=== PATIENT | female | born 1995 | race Caucasian/White ===

== ENCOUNTER 2019-06-19 14:13 | Emergency (ER) | payer SELFPAY ==
[2019-06-19 15:51] LABS: APPEARANCE,URINE SLIGHTLY-CLOUDY; BILIRUBIN,URINE NEGATIVE (NEGATIVE); COLOR,URINE YELLOW; GLUCOSE, URINE NEGATIVE (NEGATIVE); KETONES,URINE TRACE mg/dL (NEGATIVE); LEUKOCYTE ESTERASE,URINE NEGATIVE (NEGATIVE); NITRITE,URINE NEGATIVE (NEGATIVE); PROTEIN,URINE NEGATIVE (NEGATIVE); URINE SPECIFIC GRAVITY 1.013; UROBILINOGEN,URINE NEGATIVE mg/dL (<2.0)
--- NOTE | 2019-06-19 15:59 | ER Document Report ---
ED Medical Screen (RME) - General Chief Complaint: OB Problem (<20wks) Stated Complaint: VAGINAL BLEEDING WITH PRGNANCY Time Seen by Provider: 06/19/19 15:52 Notes: Health the 23-year-old G1, P0 9-week female presents to the emergency department for vaginal bleeding. Started yesterday as light spotting but has slightly increased and she noticed that the color became brighter. States she is having usual lower abdominal cramping that is not severe, denies any abnormal vaginal discharge, denies any urinary frequency/dysuria/urgency, denies lightheadedness, chest pain, shortness of breath. Denies nausea or vomiting. Exam: Well-appearing in no acute distress, nontoxic, lungs clear to auscultation in all banegas, regular cardiac rate and rhythm I have greeted and performed a rapid initial assessment of this patient. A comprehensive ED assessment and evaluation of the patient, analysis of test results and completion of medical decision making process will be conducted by an additional ED providers. TRAVEL OUTSIDE OF THE [place] IN LAST 30 DAYS: No - Related Data Allergies/Adverse Reactions: No Known Allergies Allergy (Verified 06/19/19 15:51) Home Medications: Past Medical History - Social History Chew tobacco use (# tins/day): No Frequency of alcohol use: None Drug Abuse: None Physical Exam - Vital signs Vitals: Temp Pulse Resp BP Pulse Ox 98.8 F 77 18 151/84 H 100 06/19/19 14:24 06/19/19 14:24 06/19/19 14:24 06/19/19 14:24 06/19/19 14:24 Course - Vital Signs Vital signs: Temp Pulse Resp BP Pulse Ox 98.8 F 77 18 151/84 H 100 06/19/19 14:24 06/19/19 14:24 06/19/19 14:24 06/19/19 14:24 06/19/19 14:24 - Laboratory Laboratory results interpreted by me: 06/19/19 15:33 Urine Ketones TRACE H Urine Blood LARGE H
--- NOTE | 2019-06-19 17:30 | RADIOLOGY REPORT (SQ) ---
EXAM DESCRIPTION: U/S OB TRANSVAG W/DOPPLER COMPLETED DATE/TIME: 06/19/2019 5:11 pm REASON FOR STUDY: + preg vag bleeding COMPARISON: None. TECHNIQUE: Endovaginal static and realtime grayscale images acquired of the pelvis. Additional selec latoya spectral and color Doppler images recorded. All images stored on PACs. bHCG: Not available CLINICAL DATES: Last menses 04/20/2019 (estimated gestational age by last menstrual period 8 weeks 4 days). LIMITATIONS: None. FINDINGS: UTERUS: No masses. No anomalies. Uterus is 8 x 4 x 5 cm in size GESTATIONAL SAC: Normal shape. Estimated gestational age by mean sac diameter is 6 weeks 0 days YOLK SAC: Yes POLE: Difficult to visualize There is a moderate size subchorionic hemorrhage. It cine loop imaging, active bleeding is present a long the periphery of the gestational sac. Subchorionic hemorrhage measures about 17 mm by 9 mm in s ize. RIGHT ADNEXA: Normal ovary with normal vascular flow. Right ovary 2.9 x 1.9 x 1.8 cm in size. No ad nexal free fluid.No adnexal masses. LEFT ADNEXA: Normal ovary with normal vascular flow. Left ovary 3.7 x 2.7 x 2.6 cm in size. No adne xal free fluid.No adnexal masses. 2 cm corpus luteum cyst left ovary FREE FLUID: None. OTHER: No other significant finding. IMPRESSION: Intrauterine gestational sac with yolk sac measuring about 6 weeks 0 days. No charley e is identified. Moderate subchorionic hemorrhage with active bleeding. Findings are worrisome for spontaneous . No free pelvic fluid or adnexal blood clot/mass is identified worrisome for ectopic . Close clinical follow-up with repeat ultrasound and serial HCG recommended Trimester of : First trimester - 0 to 13 weeks. TECHNICAL DOCUMENTATION: JOB ID: [id number] [employer]- All Rights Reserved Reading location - IP/workstation name: [email or web address]
[2019-06-19 18:08] LABS: ABSOLUTE LYMPHOCYTES (AUTO) 3.9 10^3/uL (0.5-4.7); ABSOLUTE MONOCYTES (AUTO) 0.9 10^3/uL (0.1-1.4); ABSOLUTE NEUT (AUTO) 7.4 10^3/uL (1.7-8.2); BASOPHILS % (AUTO) 0.2 % (0-2); EOSINOPHILS % (AUTO) 0.1 % (0-6); HEMATOCRIT 44.6 % (36.0-47.0); HEMOGLOBIN 15.2 g/dL (12.0-15.5); LYMPHOCYTES % (AUTO) 31.6 % (13-45); MEAN CORPUSCULAR HEMOGLOBIN 30.6 pg (27.0-33.4); MEAN CORPUSCULAR VOLUME 90 fl (80-97); MONOCYTES % (AUTO) 7.6 % (3-13); PLATELET COUNT 312 10^3/uL (150-450); RED BLOOD COUNT 4.97 10^6/uL (3.72-5.28); SEGMENTED NEUTROPHILS % (AUTO) 60.5 % (42-78); TOTAL CELLS COUNTED % (AUTO) 100 %; WHITE BLOOD COUNT 12.2 10^3/uL (4.0-10.5)
[2019-06-19 18:27] LABS: ALKALINE PHOSPHATASE 55 U/L (38-126); ANION GAP 15 (5-19); ASPARTATE AMINO TRANSFERASE 19 U/L (14-36); BILIRUBIN,DIRECT 0.1 mg/dL (0.0-0.4); BILIRUBIN,TOTAL 0.4 mg/dL (0.2-1.3); BLOOD UREA NITROGEN 10 mg/dL (7-20); CALCIUM 9.8 mg/dL (8.4-10.2); CARBON DIOXIDE 21 mmol/L (22-30); CHLORIDE 105 mmol/L (98-107); GLUCOSE 81 mg/dL (75-110); POTASSIUM 3.8 mmol/L (3.6-5.0); TOTAL PROTEIN 7.9 g/dL (6.3-8.2)
--- NOTE | 2019-06-19 18:35 | ER Document Report ---
ED General - General Chief Complaint: OB Problem (<20wks) Stated Complaint: VAGINAL BLEEDING WITH PRGNANCY Time Seen by Provider: 06/19/19 15:52 Primary Care Provider: [facility] [Provider Group] - Follow up as needed TRAVEL OUTSIDE OF THE [place] IN LAST 30 DAYS: No - HPI Notes: Patient is a 23-year-old female approximately 9 weeks with one previous miscarriage who presents complaining of vaginal spotting/bleeding x1 day. Patient states that she is able to eat and drink without difficulty. She is urinating normally and having normal bowel movements. She has no other concerns or complaints. Denies drug allergies. Denies any headache, fever, neck pain, URI, sore throat, chest pain, palpitations, syncope, cough, shortness of breath, wheeze, dyspnea, nausea/vomiting/diarrhea, urinary retention, dysuria, hematuria, back pain, or rash. - Related Data Allergies/Adverse Reactions: No Known Allergies Allergy (Verified 06/19/19 15:51) Home Medications: Past Medical History - Social History Smoking Status: Never Smoker Chew tobacco use (# tins/day): No Frequency of alcohol use: None Drug Abuse: None Family History: Reviewed & Not Pertinent Patient has suicidal ideation: No Patient has homicidal ideation: No Review of Systems - Review of Systems -: Yes All other systems reviewed and negative Physical Exam - Vital signs Vitals: Temp Pulse Resp BP Pulse Ox 98.8 F 77 18 151/84 H 100 06/19/19 14:24 06/19/19 14:24 06/19/19 14:24 06/19/19 14:24 06/19/19 14:24 - Notes Notes: PHYSICAL EXAMINATION: GENERAL: Well-appearing, well-nourished and in no acute distress. HEAD: Atraumatic, normocephalic. EYES: Pupils equal round and reactive to light, extraocular movements intact, sclera anicteric, conjunctiva are normal. ENT: Nares patent and without discharge. oropharynx clear without exudates. No tonsilar hypertrophy or erythema. Moist mucous membranes. NECK: Normal range of motion, supple without lymphadenopathy LUNGS: Breath sounds clear to auscultation bilaterally and equal. No wheezes rales or rhonchi. HEART: Regular rate and rhythm without murmurs, rubs, gallops. ABDOMEN: Soft, nontender, nondistended abdomen. No guarding, no rebound. Normal bowel sounds present. No CVA tenderness bilaterally. Musculoskeletal: FROM to passive/active. Strength 5+/5. Extremities: No cyanosis, clubbing, or edema b/l. Peripheral pulses 2+. Capillary refill less than 3 seconds. NEUROLOGICAL: Normal speech, normal gait. PSYCH: Normal mood, normal affect. SKIN: Warm, Dry, normal turgor, no rashes or lesions noted. Course - Re-evaluation Re-evalutation: 06/19/19 Patient is an afebrile, well-hydrated, 23-year-old female who presents to the ED with bleeding in early and probable spontaneous on US. Vitals are acceptable without any significant tachycardia, tachypnea, or hypoxia. PE is otherwise unremarkable. CBC, CMP unremarkable for acute pathology. [place] [address]. TVUS shows gest/yok sac measuring 6wks with no pole. + 'moderate' subchorionic hemorrhage noted. UA unremarkable. Patient is nontoxic-appearing is tolerating p.o. without any difficulties. No other labs or imaging warranted at this time based on H&P. Low suspicion/risk for acute appendicitis, bowel obstruction, acute cholecystiti s, acute cholangitis, perforated diverticulitis, incarcerated hernia, pancreatitis, perforated ulcer, peritonitis, sepsis, pelvic inflammatory disease, ectopic , tubo-ovarian abscess, ovarian torsion, or other systemic emergent condition at this time. Patient is aware that her condition can change from initial presentation and she needs to monitor symptoms closely and seek medical attention if any acute changes. Recheck HCG in 2-3 days, may need repeat US next week as well. Conservative measures otherwise for symptoms. Recheck with your PCM/OBGYN in 3-5 days. Return to the ED with any worsening/concerning symptoms otherwise as reviewed in discharge. Patient is in agreement. - Vital Signs Vital signs: Temp Pulse Resp BP Pulse Ox 98.8 F 77 18 151/84 H 100 06/19/19 14:24 06/19/19 14:24 06/19/19 14:24 06/19/19 14:24 06/19/19 14:24 - Laboratory Result Diagrams: 06/19/19 17:51 06/19/19 17:51 Laboratory results interpreted by me: 06/19/19 06/19/19 06/19/19 15:33 17:51 17:51 WBC 12.2 H Carbon Dioxide 21 L Beta HCG, Quant 72147.00 H Urine Ketones TRACE H Urine Blood LARGE H Discharge - Discharge Clinical Impression: Bleeding in early Condition: Stable Disposition: HOME, SELF-CARE Additional Instructions: As reviewed, the ultrasound findings are very concerning for possible spontaneous . You are currently only measuring at 6 weeks 0 days and there is a moderate subchorionic hemorrhage with active bleeding ongoing without pole identified. You should have your hormones rechecked in 2 to 3 days and another ultrasound next week by [facility]/health department. Maintain fluid intake Proper hygienic technique Keep the skin clean Tylenol as needed F/u with your PCM/OBGYN in 3-5 days for a recheck Return to the ED with any development of TODD/fever, trouble with vision, eye redness, worsening pain, urethral discharge, urinary retention, blood in the urine, flank pain, abdominal pain, n/v, Chest Pain, shortness of breath, joint pains, trouble breathing, or any other worsening/concerning symptoms as needed otherwise. Forms: Elevated Blood Pressure, Follow-Up Laboratory Testing Referrals: [facility] [Provider Group] - Follow up as needed
[2019-06-19 19:52] VITALS: BP 126/86
== END 2019-06-19 19:52 | disposition home or self-care (01) ==
LOC: ER 14:13
DX: O20.8 Other hemorrhage in early pregnancy (principal); Z3A.01 Less than 8 weeks gestation of pregnancy
CPT/HCPCS: 36415; 76817; 80053; 81001; 84702; 85025; 86900; 86901; 93976; 99284

== ENCOUNTER → 2019-07-09 | Outpatient (CLI) | payer SELFPAY ==
--- NOTE | 2019-07-09 16:56 | RADIOLOGY REPORT (SQ) ---
EXAM DESCRIPTION: U/S [id number] TRNABD 1GES W/ODOP COMPLETED DATE/TIME: 07/09/2019 1:43 pm REASON FOR STUDY: (Z34.81)ENCOUNTER FOR SUPRVSN OF NORMAL , FIRST TRIMESTER Z34.81 ENCOUNT ER FOR SUPRVSN OF NORMAL , FIRST TRIM COMPARISON: None. TECHNIQUE: Transabdominal static and realtime grayscale images acquired of the pelvis. Additional se lected spectral and color Doppler images recorded. All images stored on PACs. bHCG: Not applicable. CLINICAL DATES: LMP 05/08/2019. 8 weeks 6 days LIMITATIONS: None. FINDINGS: FETUS: Single Living intrauterine . ULTRASOUND EGA: 8 weeks 6 days ULTRASOUND BERNABE: 02/12/2020 EFW: Not applicable less than 20 weeks. CRL: 2.2 cm FHR: 173 beats per minute. SURVEY: Too early to assess. AMNIOTIC FLUID: Adequate amount. PLACENTA: Not yet developed due to early gestation. SUBCHORIONIC BLEED: No SIZE OF BLEED: Not applicable. UTERUS: No masses. No anomalies. CERVICAL LENGTH: 2.4 cm. Closed. RIGHT ADNEXA: Normal ovary with normal vascular flow. 3.5 x 2.5 x 1.7 cm. No adnexal free fluid. No adnexal masses. LEFT ADNEXA: Normal ovary with normal vascular flow. 4.5 x 3.5 x 2 cm. There is a 2.4 x 2.3 x 1.7 c m corpus luteum. No adnexal free fluid. No adnexal masses. FREE FLUID: None. OTHER: No other significant finding. IMPRESSION: LIVING INTRAUTERINE . EGA 8 weeks 6 days. Trimester of : First trimester - 0 to 13 weeks. TECHNICAL DOCUMENTATION: JOB ID: [id number] [employer]- All Rights Reserved rev-12/20 Reading location - IP/workstation name: [email or web address]
== END ==
LOC: RAD 13:13
PROVIDERS: ATTEND Midwife
DX: Z34.81 Encounter for supervision of other normal pregnancy, first trimester (principal)
CPT/HCPCS: 76801

== ENCOUNTER 2019-12-29 10:15 | Outpatient (CLI) | payer BC ==
--- NOTE | 2019-12-29 11:05 | Non Stress Test Report ---
Non Stress Test Datetime Report Generated by CPN: 12/29/2019 11:05 DEMOGRAPHIC EGA NST: 33.4 INDICATION Indication for Study (NST) Other: IUP at 33.4; Labile BPs VITAL SIGNS Temperature - NST: 98.5 Pulse - NST: 105 RESP - NST: 15 NBPSYS NST: 111 NBPDIA NST: 64 MONITORING Monitor Explained: Monitor Explained; Test Explained; Patient Verbalized Understanding Monitor Explained: Monitor Explained; Test Explained; Patient Verbalized Understanding Time on Monitor: 12/29/2019 10:35 Time on Monitor: 12/29/2019 10:27 NST INTERVENTIONS NST Interventions: PO Hydration NST Interventions: PO Hydration Physician Notified NST: Iliana Burns, CNM BABY A: [id number] BABY A Movement : Present Contraction Frequency : None FHR Baseline : 145 Accelerations : 15X15 Decelerations : None Variability : Moderate 6-25bpm NST Review: Meets Criteria for Reactive NST NST Review and Verified By : AFeuston, RN NST Results: Reactive NST REPORT Report Trigger: Send Report
== END 2019-12-29 11:05 | disposition home or self-care (01) ==
LOC: LC 10:15
PROVIDERS: ATTEND Obstetrics & Gynecology
DX: Z34.93 Encounter for supervision of normal pregnancy, unspecified, third trimester (principal); Z3A.33 33 weeks gestation of pregnancy
CPT/HCPCS: 59025

== ENCOUNTER 2020-01-12 10:27 | Outpatient (CLI) | payer BC ==
--- NOTE | 2020-01-12 11:06 | Non Stress Test Report ---
Non Stress Test Datetime Report Generated by CPN: 01/12/2020 11:06 DEMOGRAPHIC EGA NST: 35.4 INDICATION Indication for Study (NST) Other: proteinuria VITAL SIGNS Temperature - NST: 98.4 Pulse - NST: 105 RESP - NST: 15 NBPSYS NST: 131 NBPDIA NST: 62 MONITORING Monitor Explained: Monitor Explained; Test Explained; Patient Verbalized Understanding Time on Monitor: 01/12/2020 10:39 Time off Monitor: 01/12/2020 11:03 NST Duration: 24 NST INTERVENTIONS NST Interventions: PO Hydration; Reposition Patient Physician Notified NST: NYancy Luqueon, CNM BABY A: [id number] BABY A Movement : Present Contraction Frequency : 0 FHR Baseline : 145 Accelerations : 15X15 Decelerations : None Variability : Moderate 6-25bpm NST Review: Meets Criteria for Reactive NST NST Review and Verified By : SAutry NST Results: Reactive NST REPORT Report Trigger: Send Report
== END 2020-01-12 11:06 | disposition home or self-care (01) ==
LOC: LC 10:27
PROVIDERS: ATTEND Obstetrics & Gynecology
DX: O12.13 Gestational proteinuria, third trimester (principal); Z3A.35 35 weeks gestation of pregnancy
CPT/HCPCS: 59025

== ENCOUNTER 2020-01-19 10:23 | Outpatient (CLI) | payer BC ==
[2020-01-19 11:02] LABS: ABSOLUTE LYMPHOCYTES (AUTO) 2.4 10^3/uL (0.5-4.7); ABSOLUTE MONOCYTES (AUTO) 0.8 10^3/uL (0.1-1.4); ABSOLUTE NEUT (AUTO) 7.7 10^3/uL (1.7-8.2); BASOPHILS % (AUTO) 0.2 % (0-2); EOSINOPHILS % (AUTO) 0.4 % (0-6); HEMATOCRIT 36.5 % (36.0-47.0); HEMOGLOBIN 12.7 g/dL (12.0-15.5); LYMPHOCYTES % (AUTO) 21.8 % (13-45); MEAN CORPUSCULAR HEMOGLOBIN 31.4 pg (27.0-33.4); MEAN CORPUSCULAR VOLUME 90 fl (80-97); MONOCYTES % (AUTO) 6.9 % (3-13); PLATELET COUNT 284 10^3/uL (150-450); RED BLOOD COUNT 4.06 10^6/uL (3.72-5.28); RED CELL DISTRIBUTION WIDTH 13.6 % (11.5-14.0); SEGMENTED NEUTROPHILS % (AUTO) 70.7 % (42-78); TOTAL CELLS COUNTED % (AUTO) 100 %; WHITE BLOOD COUNT 10.9 10^3/uL (4.0-10.5)
[2020-01-19 11:11] LABS: AMORPHOUS SEDIMENT,URINE TRACE /HPF; APPEARANCE,URINE TURBID; BILIRUBIN,URINE NEGATIVE (NEGATIVE); COLOR,URINE YELLOW; GLUCOSE, URINE NEGATIVE (NEGATIVE); KETONES,URINE NEGATIVE (NEGATIVE); LEUKOCYTE ESTERASE,URINE NEGATIVE (NEGATIVE); NITRITE,URINE NEGATIVE (NEGATIVE); PROTEIN,URINE NEGATIVE (NEGATIVE); UROBILINOGEN,URINE NEGATIVE mg/dL (<2.0)
[2020-01-19 11:20] LABS: ALBUMIN 3.3 g/dL (3.5-5.0); ALKALINE PHOSPHATASE 115 U/L (38-126); ANION GAP 8 (5-19); ASPARTATE AMINO TRANSFERASE 18 U/L (14-36); BILIRUBIN,TOTAL 0.2 mg/dL (0.2-1.3); BLOOD UREA NITROGEN 4 mg/dL (7-20); CALCIUM 9.4 mg/dL (8.4-10.2); CARBON DIOXIDE 20 mmol/L (22-30); CHLORIDE 108 mmol/L (98-107); GLUCOSE 111 mg/dL (75-110); POTASSIUM 3.6 mmol/L (3.6-5.0); TOTAL PROTEIN 6.1 g/dL (6.3-8.2); URIC ACID 4.5 mg/dL (2.5-6.2)
[2020-01-19 11:25] LABS: URINE AMPHETAMINES SCREEN NEGATIVE; URINE BARBITURATES SCREEN NEGATIVE; URINE BENZODIAZEPINES SCREEN NEGATIVE; URINE COCAINE SCREEN NEGATIVE; URINE METHADONE SCREEN NEGATIVE; URINE PHENCYCLIDINE SCREEN NEGATIVE
[2020-01-19 11:28] LABS: URINE MARIJUANA (THC) SCREEN UNCONFIRMED POSITIVE
[2020-01-19 11:29] LABS: UR PRO/CREAT RATIO RESULT 0.2 mg/mg (0.0-0.2); URINE CREATININE 68.5 mg/dL (16-327); URINE PROTEIN 16.3 mg/dL (<12)
--- NOTE | 2020-01-19 12:57 | Non Stress Test Report ---
Non Stress Test Datetime Report Generated by CPN: 01/19/2020 12:56 DEMOGRAPHIC EGA NST: 36.4 INDICATION Indication for Study (NST) Other: GHTN at 36.4 (Annotations: Data stored by CPN on behalf of user) MONITORING Monitor Explained: Monitor Explained; Test Explained; Patient Verbalized Understanding Time on Monitor: 01/19/2020 10:36 Time off Monitor: 01/19/2020 11:17 NST Duration: 41 NST INTERVENTIONS NST Interventions: PO Hydration Physician Notified NST: Akers BABY A: [id number] BABY A Movement : Present Contraction Frequency : o FHR Baseline : 140 Accelerations : 15X15 Decelerations : None Variability : Moderate 6-25bpm NST Review: Meets Criteria for Reactive NST NST Review and Verified By : Lyla, RN NST Results: Reactive NST REPORT Report Trigger: Send Report
== END 2020-01-19 11:44 | disposition home or self-care (01) ==
LOC: LC 10:23
PROVIDERS: ATTEND Student in an Organized Health Care Education/Training Program
DX: O13.3 Gestational [pregnancy-induced] hypertension without significant proteinuria, third trimester (principal); Z3A.36 36 weeks gestation of pregnancy
CPT/HCPCS: 59025; 36415; 83615; 84156; 84550; 82570; 85025; 80053; 81001; 80307; G0480 ×2; 80349

== ENCOUNTER 2020-01-29 02:59 | Inpatient (IN) | payer BC ==
[2020-01-29] MEDS ORDERED: RINGERS SOLUTION,LACTATED 1,000 ML IV PRN ×2 (03:09→12:41)
[2020-01-29] MEDS ORDERED: RINGERS SOLUTION,LACTATED 1,000 ML IV ONE (03:09)
[2020-01-29] MEDS ORDERED: DINOPROSTONE 10 MG VAGINAL INSERT.SR PV ONE (03:19)
[2020-01-29] MEDS ORDERED: OXYTOCIN/0.9 % SODIUM CHLORIDE 30 UNIT/500 ML RTUINJ IV PRN ×2 (03:19→12:41)
[2020-01-29] MEDS ORDERED: MAG HYDROX/AL HYDROX/SIMETH SUSP 30 ML UDCUP PO PRN (03:19)
[2020-01-29] MEDS ORDERED: ZOLPIDEM TARTRATE 5 MG TABLET PO PRN (03:19)
[2020-01-29] MEDS ORDERED: ACETAMINOPHEN 325 MG TABLET PO PRN ×3 (03:19→18:22)
[2020-01-29 03:35] LABS: ABSOLUTE LYMPHOCYTES (AUTO) 3.1 10^3/uL (0.5-4.7); ABSOLUTE MONOCYTES (AUTO) 0.7 10^3/uL (0.1-1.4); ABSOLUTE NEUT (AUTO) 5.9 10^3/uL (1.7-8.2); BASOPHILS % (AUTO) 0.3 % (0-2); EOSINOPHILS % (AUTO) 0.4 % (0-6); HEMATOCRIT 37.9 % (36.0-47.0); HEMOGLOBIN 13.1 g/dL (12.0-15.5); LYMPHOCYTES % (AUTO) 31.7 % (13-45); MEAN CORPUSCULAR HEMOGLOBIN 31.1 pg (27.0-33.4); MEAN CORPUSCULAR HGB CONC 34.6 g/dL (32.0-36.0); MEAN CORPUSCULAR VOLUME 90 fl (80-97); MONOCYTES % (AUTO) 6.9 % (3-13); PLATELET COUNT 282 10^3/uL (150-450); RED BLOOD COUNT 4.22 10^6/uL (3.72-5.28); RED CELL DISTRIBUTION WIDTH 13.6 % (11.5-14.0); SEGMENTED NEUTROPHILS % (AUTO) 60.7 % (42-78); TOTAL CELLS COUNTED % (AUTO) 100 %; WHITE BLOOD COUNT 9.8 10^3/uL (4.0-10.5)
[2020-01-29 03:35] LABS: APPEARANCE,URINE CLEAR; BILIRUBIN,URINE NEGATIVE (NEGATIVE); COLOR,URINE STRAW; GLUCOSE, URINE NEGATIVE (NEGATIVE); KETONES,URINE NEGATIVE (NEGATIVE); LEUKOCYTE ESTERASE,URINE NEGATIVE (NEGATIVE); NITRITE,URINE NEGATIVE (NEGATIVE); PROTEIN,URINE NEGATIVE (NEGATIVE); URINE SPECIFIC GRAVITY 1.005; UROBILINOGEN,URINE NEGATIVE mg/dL (<2.0)
[2020-01-29 03:54] LABS: URINE AMPHETAMINES SCREEN NEGATIVE; URINE BARBITURATES SCREEN NEGATIVE; URINE BENZODIAZEPINES SCREEN NEGATIVE; URINE COCAINE SCREEN NEGATIVE; URINE MARIJUANA (THC) SCREEN NEGATIVE; URINE METHADONE SCREEN NEGATIVE; URINE PHENCYCLIDINE SCREEN NEGATIVE
[2020-01-29] MEDS ORDERED: DINOPROSTONE 10 MG VAGINAL INSERT.SR ONE (04:08)
--- NOTE | 2020-01-29 06:02 | Admission Physical ---
Datetime Report Generated by CPN: 01/29/2020 06:02 CURRENT ADMISSION Chief Complaint: Scheduled Induction of Labor Indication for Induction: PreEclampsia Admit Impression : Term, Intrauterine Admit Plan: Admit to Unit; Initiate Labor Induction Protocol ALLERGIES Medication Allergies: No Medication Allergies: No Known Allergies (01/29/2020) Latex: No Latex Allergies OBSTETRICAL HISTORY EDC: 02/12/2020 00:00 : 2 Para: 0 Term: 0 : 0 SAB: 1 IAB: 0 Ectopic: 0 Livin Cesareans: 0 VBACs: 0 Multiple Births: 0 Gestational Diabetes: No Rh Sensitization: No Incompetent Cervix: No LUIS: No Infertility: No ART Treatment: No Uterine Anomaly: No IUGR: No Hx Previous C/S: No Macrosomia: No Hx Loss/Stillborn: No PIH: No Hx : No Placenta Previa/Abruption: No Depression/PP Depression: No PTL/PROM: No Post Hemorrhage: No Current Procedures: Ultrasound; NST Obstetrical History Comments: 2014, SAB G2 - Current SEE RECORDS Alcohol: No Marijuana : No Cocaine: No Other Illicit Drugs: No Cigarettes: Current Everyday Smoker. 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 Surgery: No Heart Disease: No Hosp/Surgery: Yes Autoimmune Disorder: No Anesthetic Complications: No Kidney Disease: No Abnormal Pap Smear: Yes Neuro/Epilepsy: No Psychiatric Disorders: No Other Medical Diseases: No Hepatitis/Liver Disease: No Significant Family History: No Varicosities/Phlebitis: No Trauma/Violence : No Thyroid Dysfunction: No Medical History Comments: HTN several years ago stopped meds and lost weight; ASCUS pap; subchorionic bleed 1st trimester; widsom teeth removed; tonsillectomy INFECTIOUS HISTORY Gonorrhea: No Genital Herpes: No Chlamydia: No Tuberculosis: No Syphilis: No Hepatitis: No HIV/AIDS Exposure: No Rash or Viral Illness: No HPV: No PHYSICAL EXAM General: Normal HEENT: Normal Neurologic: Normal Thyroid: Normal Heart: Normal Lungs: Normal Breast: Normal Back: Normal Abdomen: Normal Genitourinary Exam: Normal Extremities: Normal DTRs: Normal Pelvic Type: Adequate Vital Signs: Reviewed; Within Normal Limits VAGINAL EXAM Dilatation: 1 Effacement: 75 Station: -1 Contraction Comments: no regular MEMBRANES Membranes: Intact FETUS A EGA: 38.0 Monitoring: External US FHR- Baseline: 135 Variability: Moderate 6-25bpm Accelerations: 15X15 Decelerations: None FHR Category: Category I Presentation: Vertex Admit Comment: at 38.0 wks EGA for IOL d/t preeclampsia, mild diagnosed by elevated b/p's and 24 hour urine of 618 -Admit to LDR -NPO and IVFs: LR bolus 1 liter, then 125 cc/hr -CEFM and toco -Activitiy as tolerated -VS Q 1 hr , call provider with elevated b/p >160 systolic or >110 diastolic. PIH labs ordered -GBS negative -Cervidil at 0400 -anticipate . -Rumney Mag sulfate for severe b/p or features PLANS FOR LABOR AND DELIVERY Benefit of Breast Feed Discussed: Yes Circumcision: N/A INFORMED CONSENT Informed Consent Obtained: Vaginal Delivery; Risks, Benefits and Alternatives Discussed Signature: with User ID: Marija : with User ID: [email or web address]
[2020-01-29 06:49] LABS: ALBUMIN 3.2 g/dL (3.5-5.0); ALKALINE PHOSPHATASE 123 U/L (38-126); ANION GAP 5 (5-19); ASPARTATE AMINO TRANSFERASE 17 U/L (14-36); BILIRUBIN,TOTAL 0.2 mg/dL (0.2-1.3); BLOOD UREA NITROGEN 6 mg/dL (7-20); CALCIUM 9.2 mg/dL (8.4-10.2); CARBON DIOXIDE 23 mmol/L (22-30); CHLORIDE 109 mmol/L (98-107); GLUCOSE 87 mg/dL (75-110); POTASSIUM 3.9 mmol/L (3.6-5.0); TOTAL PROTEIN 5.8 g/dL (6.3-8.2); URIC ACID 4.8 mg/dL (2.5-6.2)
[2020-01-29] MEDS ORDERED: LIDOCAINE 1% INJ-PF (10 MG/ML) 30 ML SDV ONE (08:17)
[2020-01-29] MEDS ORDERED: OXYTOCIN/0.9 % SODIUM CHLORIDE 0 UNIT/0 ML RTUINJ ONE (08:17)
[2020-01-29] MEDS ORDERED: MISOPROSTOL 0.2 MG TABLET ONE ×2 (08:17→17:53)
[2020-01-29] MEDS ORDERED: OXYTOCIN 10 UNIT/ML VIAL ONE ×2 (08:17→12:48)
[2020-01-29] MEDS ORDERED: NALBUPHINE HCL INJ 10 MG/1 ML AMPULE ONE (08:53)
[2020-01-29] MEDS ORDERED: NALBUPHINE HCL INJ 10 MG/1 ML AMPULE INJ ONE (08:53)
--- NOTE | 2020-01-29 08:58 | L&D Progress Notes ---
PROGRESS NOTES Datetime Report Generated by CPN: 01/29/2020 08:58 PROGRESS NOTE Impression: Reassuring Heart Rate Plan: Continue Present Management; Induction Plan Other: IV Pain medication Informed Consent Obtained: Vaginal Delivery; Risks, Benefits and Alternatives Discussed Vital Signs : Reviewed; Within Normal Limits Comment: IOL continues, Cervidil replaced. Pt standing at the bedside rocking her hips. Denies headache. Becoming uncomfortable w/ stronger contractions now. States she does plan an epidural once in active labor. Attending MD today is Dr Pastrana, agrees with plan of care. VAGINAL EXAM Dilatation: 1 Effacement: 75 Station: -1 Contractions: no regular LAST VAGINAL EXAM-NURSING Nursing Exam Dilitation: 1.0 Nursing Exam Effacement: 75 Nursing Exam Station: -1 MEMBRANES Membranes: Intact FETUS A FHR - Baseline: 140 Monitoring: External US Variability: Moderate 6-25bpm Accelerations: 15X15 Decelerations: None FHR Category: Category I : 38.0 Presentation: Vertex SIGNATURE SIGNATURE: [id number];[id number];[id number] Assignment: Oumou Pastrana MD Signature: with User ID: Mario : with User ID: Mario
[2020-01-29] MEDS ORDERED: EPHEDRINE SULFATE INJ 50 MG/1 ML AMPULE ONE ×2 (10:34→12:49)
[2020-01-29] MEDS ORDERED: FENTANYL/BUPIVACAINE/NS/PF 300 MCG/150 ML RTUINJ EPI ONE (10:34)
[2020-01-29] MEDS ORDERED: BUPIVACAINE HCL 0.25 % INJ/PF (2.5 MG/1 ML) 30 ML VIAL ONE (10:35)
[2020-01-29] MEDS ORDERED: ONDANSETRON HCL INJ/PF 4 MG/2 ML SDV IV ONE (11:12)
[2020-01-29] MEDS ORDERED: ONDANSETRON HCL INJ/PF 4 MG/2 ML SDV ONE ×2 (11:13→12:49)
--- NOTE | 2020-01-29 12:04 | L&D Progress Notes ---
PROGRESS NOTES Datetime Report Generated by CPN: 01/29/2020 12:04 PROGRESS NOTE Impression: Reassuring Heart Rate Impression Other: variable decels continue, cervidil removed Procedures: Sterile Vag Exam Plan: Continue Present Management; Induction Plan Other: will watch FHR tracing, position changes encouraged. Informed Consent Obtained: Vaginal Delivery; Risks, Benefits and Alternatives Discussed Vital Signs : Reviewed; Within Normal Limits Comment: Variable decels continue, position changes, Cervidil removed. Discussed w/ Dr Pastrana, will allow pt to rest, FHR to recover. Then plan to start Pitocin when appropriate. If Decels continue, my proceed w/ Primary Cesarea for delivery. PLan communicated to pt and her S.O. questions answered. VAGINAL EXAM Dilatation: 1 Effacement: 75 Station: -1 Contractions: no regular LAST VAGINAL EXAM-NURSING Nursing Exam Dilitation: 2.0 Nursing Exam Effacement: 50 Nursing Exam Station: -3 Nursing Exam Contractions: uterine irritability noted MEMBRANES Membranes: Intact FETUS A FHR - Baseline: 160 Monitoring: External US Variability: Moderate 6-25bpm Accelerations: 15X15 Decelerations: Variable FHR Category: Category II : 38.0 Presentation: Vertex SIGNATURE SIGNATURE: [id number];[id number];[id number] Assignment: Oumou Pastrana MD Signature: with User ID: Mario : with User ID: Mario
[2020-01-29] MEDS ORDERED: CEFAZOLIN 1 GM/D5W RTU 2 GM/100 ML RTUPB IV ONE (12:33)
[2020-01-29] MEDS ORDERED: CITRIC ACID/SODIUM CITRATE ORAL SOLN 15 ML UDCUP ONE (12:33)
[2020-01-29] MEDS ORDERED: CEFAZOLIN SODIUM 2 GM in DEXTROSE 5%-WATER 50 ML IV PRN (12:37)
[2020-01-29] MEDS ORDERED: OXYCODONE-ACETAMINOPHEN 5-325 MG TABLET PO PRN (12:41)
[2020-01-29] MEDS ORDERED: PROMETHAZINE HCL INJ 25 MG/1 ML VIAL IV PRN (12:41)
[2020-01-29] MEDS ORDERED: SIMETHICONE 80 MG TAB.CHEW PO PRN (12:41)
[2020-01-29] MEDS ORDERED: MEASLES,MUMPS&RUBELLA VACC/PF 0.5 ML VIAL SUBCUT PRN (12:41)
[2020-01-29] MEDS ORDERED: ACETAMINOPHEN 1,000 MG/100 ML RTUPB IV PRN (12:41)
[2020-01-29] MEDS ORDERED: DIPH/PERTUSS(ACELL)/TETANUS VAC/PF 0.5 ML SYR (>=10YO) IM PRN (12:41)
[2020-01-29] MEDS ORDERED: KETOROLAC TROMETHAMINE INJ/PF 30 MG/1 ML SDV ONE (12:48)
[2020-01-29] MEDS ORDERED: GLYCOPYRROLATE INJ 0.4 MG/2 ML VIAL ONE (12:48)
[2020-01-29] MEDS ORDERED: PHENYLEPHRINE HCL INJ/PF 10 MG/1 ML SDV ONE (12:48)
[2020-01-29] MEDS ORDERED: OXYTOCIN/0.9 % SODIUM CHLORIDE 30 UNIT/500 ML RTUINJ ONE ×2 (12:49→14:35)
[2020-01-29] MEDS ORDERED: ACETAMINOPHEN 1,000 MG/100 ML RTUPB IV ONE (12:49)
[2020-01-29] MEDS ORDERED: LIDOCAINE 2% INJ-PF (20 MG/ML) 10 ML AMPUL ONE ×2 (12:54→13:10)
[2020-01-29] MEDS ORDERED: FENTANYL CITRATE INJ/PF 100 MCG/2 ML AMPUL ONE (13:10)
--- NOTE | 2020-01-29 13:54 | Operative Report ---
Operative Report DATE OF SURGERY: 01/29/20 PREOPERATIVE DIAGNOSIS: IUP at 38 weeks and 0 days, preeclampsia, category 2 st rip persistent, POSTOPERATIVE DIAGNOSIS: Same and possible abruption OPERATION: Primary low transverse hysterotomy section SURGEON: ASHU BURTON ANESTHESIA: Epidural - Events that TISSUE REMOVED OR ALTERED: Placenta COMPLICATIONS: None ESTIMATED BLOOD LOSS: 800 cc INTRAOPERATIVE FINDINGS: Female infant cephalic presentation Apgars of 7 8 and 9. Placenta with evidence of partial abruption due to dark clotted blood behind placenta after it was removed PROCEDURE: PROCEDURE IN DETAIL: The patient was taken to the operating room, prepared and draped in a normal sterile fashion in a supine position with a leftward tilt. A transverse skin incision was made with a scalpel and carried through to the underlying layer of fascia with the same scalpel. The fascia was excised in the midline and extended laterally with Nabor. The fascia was then dissected from the rectus muscle sharply with Nabor and the rectus muscle was divided and the peritoneal cavity was entered sharply with the same Metzenbaum. With good visualization of the bladder and the uterus the bladder blade was inserted. The hysterotomy was nicked with a scalpel and extended laterally with surgeon finger fraction. The infant was then delivered atraumatically with the assistance of a kiwi vaccuum x 1 application with no pop off. The nose and mouth were suctioned with a suction bulb, the cord was clamped and cut and handed off to awaiting pediatricians. Cord blood was collected. The placenta was removed manually. The uterus was exteriorized and cleared of clots and debris. The hysterotomy was closed with 0 Monocryl in a running, locked fashion. A second layer of the same suture was used to imbricate to ensure hemostasis. The uterus was returned to the abdomen and peritoneal cavity was cleared of clots and debris. The rectus muscle and peritoneum were repaired with mattress stitch of 2-0 Chromic. The fascia was closed with 0-Vicryl. The subcutaneous layer was closed with plain catgut and the skin was closed with 4-0 Vicryl. The patient tolerated the procedure well. Sponge, lap, and needle counts correct x2 and the patient was taken to recovery in stable condition.
[2020-01-29] MEDS ORDERED: HYDROMORPHONE HCL INJ/PF 2 MG/ML AMPULE ONE (14:35)
[2020-01-29] MEDS ORDERED: PROMETHAZINE HCL INJ 25 MG/1 ML VIAL ONE (14:35)
--- NOTE | 2020-01-29 15:23 | Delivery Summary ---
Del Sum A-C Datetime Report Generated by CPN: 01/29/2020 15:22 DELIVERY PERSONNEL DELIVERY PERSONNEL: [id number] Delivery Doctor:: Oumou Pastrana MD ASSISTANT ACTIVITIES DIRECTOR:: Ary Parish CRNA Inspector Wire Products:: Charisse Conley RN Neonatal Nurse Practitioner:: FRANDY Pandey Nursery Nurse:: Jami Lemon RN Clinic Charge Nurse/HEALTH DATA ANALYST: Lien Mix CST Clinic Charge Nurse/HEALTH DATA ANALYST: Zack Antoine, BLANKET INSPECTOR MATERNAL INFORMATION Delivery Anesthesia: Epidural Medications After Delivery: Pitocin 30 Units in 500ml NS/D5W Delivery QBL: 430 Maternal Complications: Abruptio Placenta LABOR SUMMARY EDC: 02/12/2020 00:00 No. Babies in Womb: 1 Attempted: No Labor Anesthesia: Epidural LABOR INFORMATION Reason for Induction: Pre-Eclampsia Cervical Ripening Agents: Cervidil Oxytocin: N/A Group B Beta Strep: Negative Steroids Given: None Reason Steroids Not Administered: Not Applicable MEMBRANES Membranes Rupture Method: Artificial Rupture of Membranes: 01/29/2020 13:10 Length of Rupture (hr): 0.03 Amniotic Fluid Color: Clear Amniotic Fluid Amount: Moderate Amniotic Fluid Odor: None STAGES OF LABOR Stage 3 hr: 0 Stage 3 min: 2 VAGINAL DELIVERY Episiotomy: None Laceration #1: None Laceration Extension #1: N/A Laceration Repair: Not Applicable Sponge Count Correct: N/A Sharps Count Correct: N/A CSECTION DELIVERY Primary Indication: Nonreassuring Status Secondary Indication: Abruptio Placenta CSection Urgency: Emergency CSection Incidence: Primary Labor: No Labor Elective: Nonelective CSection Incision: Lower Uterine Transverse BABY A INFORMATION Delivery Date/Time: 01/29/2020 13:12 Method of Delivery: Nurse Controlled Delivery: No Born in Route : No : N/A Forceps: N/A Vacuum Extraction: Successful Shoulder Dystocia : No PRESENTATION/POSITION BABY A Presentation: Cephalic Cephalic Presentation: Vertex Vertex Position: Left Occipital Anterior Breech Presentation: N/A PLACENTA INFORMATION BABY A Placenta Delivery Time : 01/29/2020 13:14 Placenta Method of Delivery: Manual Removal Placenta Status: Delivered SCORES BABY A Heart Rate 1 min: >100 bpm Resp Effort 1 min: Good Cry Reflex Irritability 1 min: Cough or Sneeze or Pulls Away Muscle Tone 1 min: Some Flexion of Extremities Color 1 min: Blue/Pale Resuscitation Effort 1 min: Tactile Stimulation SCORE 1 MIN: 7 Heart Rate 5 min: >100 bpm Resp Effort 5 min: Good Cry Reflex Irritability 5 min: Cough or Sneeze or Pulls Away Muscle Tone 5 min: Active Motion Color 5 min: Body [place], Extremities Blue Resuscitation Effort 5 min: Tactile Stimulation SCORE 5 MIN: 9 INFANT INFORMATION BABY A Gestational Age at Delivery: 38.0 Gestational Status: Early Term- 37- 38.6 Weeks Outcome : Liveborn Condition : Stable Infant Sex: Female WEIGHT/LENGTH BABY A Infant Birthweight (gm): 2575 Infant Weight (lb): 5 Infant Weight (oz): 11 Infant Length (in): 19.25 Infant Length (cm): 48.90 CORD INFORMATION BABY A No. Cord Vessels: 3 Nuchal Cord : N/A Cord Blood Taken: Yes-For Storage (Mom's Blood type +) Infant Suction: None ASSESSMENT BABY A Physical Findings at Delivery: Within Normal Limits Infant Respirations: Appears Normal Streetcar Conductor/ALS Called : No Care By: Duc Lemon RN/B FRANDY Leigh Transferred To: [facility] BABY B INFORMATION : N/A
[2020-01-29] MEDS: KETOROLAC TROMETHAMINE INJ/PF 30 MG/1 ML SDV IV SCH ×2 (16:06→21:37)
[2020-01-29] MEDS: MORPHINE SULFATE 10 MG/ML INJ IM PRN (17:32)
[2020-01-29] MEDS ORDERED: METHYLERGONOVINE MALEATE INJ/PF 0.2 MG/1 ML AMPULE ONE (17:38)
[2020-01-29] MEDS ORDERED: MISOPROSTOL 0.1 MG TABLET ONE (17:38)
[2020-01-29] MEDS ORDERED: MEPERIDINE HCL/PF INJ 25 MG/1 ML DISP.SYRIN ONE ×2 (18:00→18:05)
[2020-01-29] MEDS ORDERED: DIPHENHYDRAMINE HCL 25 MG CAPSULE PO PRN (18:23)
[2020-01-29] MEDS ORDERED: DIPHENHYDRAMINE HCL 25 MG CAPSULE ONE (18:24)
[2020-01-29 18:31] LABS: ABSOLUTE LYMPHOCYTES (AUTO) 2.4 10^3/uL (0.5-4.7); ABSOLUTE MONOCYTES (AUTO) 1.1 10^3/uL (0.1-1.4); ABSOLUTE NEUT (AUTO) 10.2 10^3/uL (1.7-8.2); BASOPHILS % (AUTO) 0.2 % (0-2); EOSINOPHILS % (AUTO) 0.1 % (0-6); HEMATOCRIT 30.3 % (36.0-47.0); LYMPHOCYTES % (AUTO) 17.3 % (13-45); MEAN CORPUSCULAR HEMOGLOBIN 31.3 pg (27.0-33.4); MEAN CORPUSCULAR HGB CONC 34.5 g/dL (32.0-36.0); MEAN CORPUSCULAR VOLUME 91 fl (80-97); MONOCYTES % (AUTO) 8.1 % (3-13); PLATELET COUNT 256 10^3/uL (150-450); RED BLOOD COUNT 3.34 10^6/uL (3.72-5.28); RED CELL DISTRIBUTION WIDTH 13.7 % (11.5-14.0); SEGMENTED NEUTROPHILS % (AUTO) 74.3 % (42-78); TOTAL CELLS COUNTED % (AUTO) 100 %; WHITE BLOOD COUNT 13.8 10^3/uL (4.0-10.5)
[2020-01-29 18:36] LABS: HEMOGLOBIN 10.5 g/dL (12.0-15.5)
[2020-01-30] MEDS: OXYCODONE-ACETAMINOPHEN 5-325 MG TABLET PO PRN ×3 (01:57→23:09)
[2020-01-30] MEDS: KETOROLAC TROMETHAMINE INJ/PF 30 MG/1 ML SDV IV SCH (06:22)
[2020-01-30 06:24] LABS: HEMATOCRIT 31.4 % (36.0-47.0); HEMOGLOBIN 11.1 g/dL (12.0-15.5); MEAN CORPUSCULAR HEMOGLOBIN 31.4 pg (27.0-33.4); MEAN CORPUSCULAR HGB CONC 35.4 g/dL (32.0-36.0); MEAN CORPUSCULAR VOLUME 89 fl (80-97); PLATELET COUNT 187 10^3/uL (150-450); RED BLOOD COUNT 3.54 10^6/uL (3.72-5.28); RED CELL DISTRIBUTION WIDTH 14.3 % (11.5-14.0); WHITE BLOOD COUNT 10.4 10^3/uL (4.0-10.5)
[2020-01-30] MEDS: MORPHINE SULFATE 10 MG/ML INJ IM PRN (07:08)
[2020-01-30] MEDS ORDERED: METHYLERGONOVINE MALEATE 0.2 MG TABLET ONE ×2 (08:11→23:02)
[2020-01-30] MEDS: IBUPROFEN 800 MG TABLET PO SCH ×4 (08:13→23:08)
[2020-01-30] MEDS: METHYLERGONOVINE MALEATE 0.2 MG TABLET PO SCH ×4 (08:13→23:09)
--- NOTE | 2020-01-30 10:06 | PDOC PROGRESS REPORT ---
Subjective-OB Progress Note for:: 01/30/20 - POD #1, pt doing well this morning, states vaginal bleeding has slowed way down. S/p Primary w/ PPH. 2 units PRBC given. Physical Exam (OB) Vital Signs: Temp Pulse Resp BP Pulse Ox 98.3 F 96 18 122/78 97 01/30/20 07:39 01/30/20 07:39 01/30/20 07:39 01/30/20 07:39 01/30/20 07:39 Intake & Output 01/29/20 01/30/20 01/31/20 06:59 06:59 06:59 Intake Total 980 Output Total 1216 Balance -236 Weight 97.4 kg - General General Appearance: Appears well, Alert In distress: None - PIH/Pre-Eclampsia Clonus: Negative Headache: Absent Visual Changes: No - Dressing Removed: No Incision: Dressing, Draining Note: honey comb dressing present - Lochia Lochia Amount: Scant < 10 ml Lochia Color: Rubra/Red - Abdomen Description: Tender, Soft Hernia Present: No Fundal Description: Firm, Midline Fundal Height: u/3 - u/4 - Respiratory Respiratory Status: No respiratory distress - Abdominal Distension: No distension Tenderness: Nontender - Genitourinary Genitourinary Note: hill cath in place, clear eriberto urine draining - Extremities Upper extremity: Edema - SCD hose applied Lower extremities: Edema - Neurological Cognition: Normal Orientation: AAOx4 Speech: Normal - Psychological Associated symptoms: Normal affect, Normal mood - Skin Skin Temperature: Warm Skin Moisture: Dry Objective-Diagnostic Laboratory: 01/30/20 05:56 01/29/20 06:20 01/29/20 01/29/20 01/30/20 03:22 18:20 05:56 WBC 13.8 H 10.4 RBC 3.34 L 3.54 L Hgb 10.5 L D 11.1 L Hct 30.3 L 31.4 L MCV 91 89 MCH 31.3 31.4 MCHC 34.5 35.4 RDW 13.7 14.3 H Plt Count 256 187 Seg Neutrophils % 74.3 Blood Type A POSITIVE Antibody Screen NEGATIVE Assessment and Plan(PN) - Assessment and Plan (1) hematoma Is this a current diagnosis for this admission?: Yes (2) Blood transfusion during current hospitalisation Is this a current diagnosis for this admission?: Yes (3) intolerance to labor, delivered, current hospitalization Is this a current diagnosis for this admission?: Yes (4) Status post primary low transverse section Is this a current diagnosis for this admission?: Yes Plan:: d/c hill, ambulation encouraged. Watch for continued increased vaginal bleeding, Routine Post Op and PP orders - Time Spent with Patient Time with patient: Less than 15 minutes Medications reviewed and adjusted accordingly: Yes - Disposition Anticipated Discharge: Home Within: within 48 hours
[2020-01-30] MEDS: DOCUSATE SODIUM 100 MG CAPSULE PO SCH ×2 (10:09→18:39)
[2020-01-30] MEDS: PRENATAL VITAMIN W DHA CAPSULE PO SCH (10:09)
[2020-01-30] MEDS ORDERED: IBUPROFEN 800 MG TABLET PO SCH ×2 (12:00→18:00)
[2020-01-31] MEDS ORDERED: METHYLERGONOVINE MALEATE 0.2 MG TABLET ONE (05:27)
[2020-01-31] MEDS: METHYLERGONOVINE MALEATE 0.2 MG TABLET PO SCH (05:29)
[2020-01-31] MEDS: IBUPROFEN 800 MG TABLET PO SCH ×2 (05:29→11:51)
[2020-01-31] MEDS: OXYCODONE-ACETAMINOPHEN 5-325 MG TABLET PO PRN (05:32)
--- NOTE | 2020-01-31 09:47 | PDOC DISCHARGE SUMMARY ---
Impression - Admit/DC Date/PCP Admission Date/Primary Care Provider: 01/29/20 02:59 HOANG PIERRE MD Discharge Date: 01/31/20 - POD #2, doing very well, UOB, voiding, desires to go home today. A+, Rubella immune, bottlefeeding. S/p 2 units PRBC transfusion for PPH. - Discharge Diagnosis (1) hematoma Is this a current diagnosis for this admission?: Yes (2) Blood transfusion during current hospitalisation Is this a current diagnosis for this admission?: Yes (3) intolerance to labor, delivered, current hospitalization Is this a current diagnosis for this admission?: Yes (4) Status post primary low transverse section Is this a current diagnosis for this admission?: Yes - Additional Information Resuscitation Status: Full Code Discharge Diet: As Tolerated, Regular Discharge Activity: Activity As Tolerated, No Driving, No Lifting Over 10 Pounds, Pelvic Rest Referrals: HOANG PIERRE MD [Primary Care Provider] - Prescriptions: Ibuprofen [Motrin 800 mg Tablet] 800 mg PO Q6 #60 tablet Oxycodone HCl/Acetaminophen [Percocet 5-325 mg Tablet] 1 tab PO Q4HP PRN #30 tablet PRN Reason: Pain Scale Of 4 Home Medications: Vitamin [-U Multiple Vitamin Capsule] 1 cap PO DAILY 06/19/19 Iron,Carb/Vit C/Vit B12/Folic [Iron 100 Plus Tablet] 1 tab PO DAILY 12/29/19 Loratadine [Claritin 10 mg Tablet] 10 mg PO DAILY 12/29/19 Ibuprofen [Motrin 800 mg Tablet] 800 mg PO Q6 #60 tablet 01/31/20 Oxycodone HCl/Acetaminophen [Percocet 5-325 mg Tablet] 1 tab PO Q4HP PRN #30 tablet 01/31/20 HPI Reason(s) for Admission: Induction of Labor, Other - Pre-eclampsia Procedures: Management of Obstetric Complications Intrapartum Procedure(s): : Low Cervical, Transverse Complication(s): Hemorrhage-Uterine Atony Results Laboratory Results: WBC 10.4 10^3/uL (4.0-10.5) 01/30/20 05:56 RBC 3.54 10^6/uL (3.72-5.28) L 01/30/20 05:56 Hgb 11.1 g/dL (12.0-15.5) L 01/30/20 05:56 Hct 31.4 % (36.0-47.0) L 01/30/20 05:56 MCV 89 fl (80-97) 01/30/20 05:56 MCH 31.4 pg (27.0-33.4) 01/30/20 05:56 MCHC 35.4 g/dL (32.0-36.0) 01/30/20 05:56 RDW 14.3 % (11.5-14.0) H 01/30/20 05:56 Plt Count 187 10^3/uL (150-450) 01/30/20 05:56 Lymph % (Auto) 17.3 % (13-45) 01/29/20 18:20 Dickey % (Auto) 8.1 % (3-13) 01/29/20 18:20 Eos % (Auto) 0.1 % (0-6) 01/29/20 18:20 Baso % (Auto) 0.2 % (0-2) 01/29/20 18:20 Absolute Neuts (auto) 10.2 10^3/uL (1.7-8.2) H 01/29/20 18:20 Absolute Lymphs (auto) 2.4 10^3/uL (0.5-4.7) 01/29/20 18:20 Absolute Monos (auto) 1.1 10^3/uL (0.1-1.4) 01/29/20 18:20 Absolute Eos (auto) 0.0 10^3/uL (0.0-0.6) 01/29/20 18:20 Absolute Basos (auto) 0.0 10^3/uL (0.0-0.2) 01/29/20 18:20 Seg Neutrophils % 74.3 % (42-78) 01/29/20 18:20 Sodium 137.0 mmol/L (137-145) 01/29/20 06:20 Potassium 3.9 mmol/L (3.6-5.0) 01/29/20 06:20 Chloride 109 mmol/L (98-107) H 01/29/20 06:20 Carbon Dioxide 23 mmol/L (22-30) 01/29/20 06:20 Anion Gap 5 (5-19) 06/26/20 06:20 BUN 6 mg/dL (7-20) L 01/29/20 06:20 Creatinine 0.45 mg/dL (0.52-1.25) L 01/29/20 06:20 Est GFR ( Amer) > 60 (>60) 01/29/20 06:20 Est GFR (MDRD) Non-Af > 60 (>60) 01/29/20 06:20 Glucose 87 mg/dL (75-110) 01/29/20 06:20 Uric Acid 4.8 mg/dL (2.5-6.2) 01/29/20 06:20 Calcium 9.2 mg/dL (8.4-10.2) 01/29/20 06:20 Total Bilirubin 0.2 mg/dL (0.2-1.3) 01/29/20 06:20 Direct Bilirubin 0.0 mg/dL (0.0-0.4) 01/29/20 06:20 Neonat Total Bilirubin Not Reportable 01/29/20 06:20 Neonat Direct Bilirubin Not Reportable 01/29/20 06:20 Neonat Indirect Bili Not Reportable 01/29/20 06:20 AST 17 U/L (14-36) 01/29/20 06:20 ALT 13 U/L (<35) 01/29/20 06:20 Alkaline Phosphatase 123 U/L (38-126) 01/29/20 06:20 Lactate Dehydrogenase 159 U/L (120-246) 01/29/20 06:20 Total Protein 5.8 g/dL (6.3-8.2) L 01/29/20 06:20 Albumin 3.2 g/dL (3.5-5.0) L 01/29/20 06:20 Urine Color STRAW 01/29/20 03:15 Urine Appearance CLEAR 01/29/20 03:15 Urine pH 8.0 (5.0-9.0) 01/29/20 03:15 Ur Specific Dille 1.005 01/29/20 03:15 Urine Protein NEGATIVE mg/dL (NEGATIVE) 01/29/20 03:15 Urine Glucose (UA) NEGATIVE mg/dL (NEGATIVE) 01/29/20 03:15 Urine Ketones NEGATIVE mg/dL (NEGATIVE) 01/29/20 03:15 Urine Blood NEGATIVE (NEGATIVE) 01/29/20 03:15 Urine Nitrite NEGATIVE (NEGATIVE) 01/29/20 03:15 Urine Bilirubin NEGATIVE (NEGATIVE) 01/29/20 03:15 Urine Urobilinogen NEGATIVE mg/dL (<2.0) 01/29/20 03:15 Ur Leukocyte Esterase NEGATIVE (NEGATIVE) 01/29/20 03:15 Urine Ascorbic Acid NEGATIVE (NEGATIVE) 01/29/20 03:15 Urine Opiates Screen NEGATIVE 01/29/20 03:15 Urine Methadone Screen NEGATIVE 01/29/20 03:15 Ur Barbiturates Screen NEGATIVE 01/29/20 03:15 Ur Phencyclidine Scrn NEGATIVE 01/29/20 03:15 Ur Amphetamines Screen NEGATIVE 01/29/20 03:15 U Benzodiazepines Scrn NEGATIVE 01/29/20 03:15 Urine Cocaine Screen NEGATIVE 01/29/20 03:15 U Marijuana (THC) Screen NEGATIVE 01/29/20 03:15 RPR NONREACTIVE (NONREACTIVE) 01/29/20 03:22 Blood Type A POSITIVE 01/29/20 03:22 Blood Type Confirm A POSITIVE 01/29/20 03:22 Antibody Screen NEGATIVE 01/29/20 03:22 Crossmatch See Detail 01/29/20 03:22 Plan Plan of Treatment: d/c home. f/up with [facility] in one week for BP and incision check. Time Spent: Less than 30 Minutes
[2020-01-31 10:16] VITALS: BP 118/75
[2020-01-31] MEDS: PRENATAL VITAMIN W DHA CAPSULE PO SCH (10:41)
[2020-01-31] MEDS: DOCUSATE SODIUM 100 MG CAPSULE PO SCH (10:41)
== END 2020-01-31 13:05 | disposition home or self-care (01) | DRG 788 ==
LOC: LR 02:59 → 2N 15:37
PROVIDERS: ADMIT Obstetrics & Gynecology; ATTEND Obstetrics & Gynecology
PROC: 10D00Z1 Extraction of Products of Conception, Low, Open Approach (ICD-10-PCS; principal; 2020-01-29)
PROC: 30233N1 Transfusion of Nonautologous Red Blood Cells into Peripheral Vein, Percutaneous Approach (ICD-10-PCS; 2020-01-29)
DX: O14.04 Mild to moderate pre-eclampsia, complicating childbirth (principal); O45.93 Premature separation of placenta, unspecified, third trimester; O99.334 Smoking (tobacco) complicating childbirth; O76 Abnormality in fetal heart rate and rhythm complicating labor and delivery; O72.1 Other immediate postpartum hemorrhage; F17.210 Nicotine dependence, cigarettes, uncomplicated; Z37.0 Single live birth; Z3A.38 38 weeks gestation of pregnancy
CPT/HCPCS: 1967; 1968; 36415; 36430; 80053; 80307; 81005; 83615; 84550; 85025; 85027; 86592; 86850; 86900; 86901; 86920; 88307; 94760; 94799; 99140; J0131; J0690; J1170; J1885; J2175; J2210; J2270; J2300; J2370; J2405; J2550; J2590; J3010; J3490; P9016